=== PATIENT | female | born 1965 | race Caucasian/White ===

== ENCOUNTER 2016-10-14 06:43 | Outpatient (CLI) | payer BC ==
[~2016-10-14] VITALS: Ht 162.6 cm; Wt 61.8 kg
[2016-10-14] MEDS ORDERED: PRAVASTATIN SOD10 MG PO (07:08)
[2016-10-14] MEDS ORDERED: INVOKANA100 MG PO (07:08)
[2016-10-14] MEDS ORDERED: GLUCOPHAGE850 MG PO (07:09)
[2016-10-14] MEDS ORDERED: OMEPRAZOLE40 MG PO (07:09)
[2016-10-14] MEDS ORDERED: TRAZODONE HCL150 MG PO (07:10)
[2016-10-14] MEDS ORDERED: LANTUS INSULIN10 ML SC (07:10)
[2016-10-14] MEDS ORDERED: ESTRACE 0.5 MG0.5 MG PO (07:11)
[2016-10-14] MEDS ORDERED: ZOVIRAX400 MG PO (07:11)
[2016-10-14] MEDS ORDERED: ULTRAM50 MG PO (07:12)
[2016-10-14 07:25] VITALS: BP 110/77; Ht 162.6 cm; Wt 61.8 kg
[2016-10-14 07:30] LABS: BASOPHILS 0.4 % (0-2); HEMATOCRIT 40.5 % (36.0-48.0); HEMOGLOBIN 13.7 g/dL (12-16); IMMATURE GRANULOCYTES 0.2 % (0-5); LYMPHOCYTES 29.1 % (15-50); MCH 29.1 pg (26.0-34.0); MCHC 33.8 g/dL (31.0-37.0); MCV 86.2 fL (80.0-100.0); MEAN PLATELET VOLUME 12.3 fL (7.4-10.4); NEUTROPHILS 60.3 % (40-80); PLATELET COUNT 263 10x3/uL (130-400); RDW 13.5 % (11.5-14.5); WBC 8.2 10x3/uL (4.8-10.8)
[2016-10-14 07:41] LABS: CALC OSMOLALITY 279 mosm/kg (275-300); CALCIUM 8.8 mg/dL (8.5-10.1); CARBON DIOXIDE 27.1 mmol/L (21.0-32.0); CHLORIDE - SERUM 105 mmol/L (98-107); CREATININE - SERUM 0.4 mg/dL (0.6-1.3); GLUCOSE 158 mg/dL (74-106); SODIUM 138 mmol/L (136-145); UREA NITROGEN 15 mg/dL (7-18); eGFR NON AFRICAN AMERICAN > 90 mL/min (90-120)
[2016-10-14 07:42] LABS: POTASSIUM - SERUM 4.3 mmol/L (3.5-5.1)
[2016-10-14 07:47] LABS: INR 0.9 (0.85-1.17)
== END 2016-10-14 11:25 | disposition home or self-care (01) ==
LOC: D.OPS 06:43
PROVIDERS: Specialist
DX: M25.551 Pain in right hip (principal)

== ENCOUNTER → 2016-11-25 09:36 | Outpatient (CLI) | payer BC ==
[2016-10-14 07:25] VITALS: BMI 23.4
[~2016-11-25 09:36] MED LIST: ESTRACE 0.5 MG0.5 MG PO; GLUCOPHAGE850 MG PO; INVOKANA100 MG PO; LANTUS INSULIN10 ML SC; OMEPRAZOLE40 MG PO; PRAVASTATIN SOD10 MG PO; TRAZODONE HCL150 MG PO; ULTRAM50 MG PO; ZOVIRAX400 MG PO
== END | disposition home or self-care (01) ==
LOC: D.MRI 09:36
DX: M54.16 Radiculopathy, lumbar region (principal)